=== PATIENT | female | born 1985 | race American Indian/Alaskan Native ===

== ENCOUNTER 2023-08-24 18:36 | Day surgery (SDC) | payer MEDICAID ==
[2023-08-24] MEDS ORDERED: Aluminum Hydroxide/Magnesium Hydroxide/Simethicone Susp 30 ML Cup PO ONE (19:02)
[2023-08-24 19:39] LABS: BASOPHILS PERCENT AUTO 0.2 % (0.0-1.0); EOSINOPHILS ABSOLUTE AUTO 0.1 K/mm3 (0.0-0.4); EOSINOPHILS PERCENT AUTO 0.7 % (0.0-6.0); HEMOGLOBIN 16.1 gm/dl (12.0-16.0); IMMATURE GRAN ABSOLUTE AUTO 0.04 K/mm3 (0.00-0.05); IMMATURE GRAN PERCENT AUTO 0.4 % (0.0-0.4); LYMPHOCYTES ABSOLUTE AUTO 0.7 K/mm3 (1.0-4.8); LYMPHOCYTES PERCENT AUTO 6.9 % (24.0-44.0); MEAN CORPUSCULAR HEMOGLOBIN 29.2 pg (28.0-32.0); MEAN CORPUSCULAR HGB CONC 33.5 g/dl (32.0-36.0); MEAN PLATELET VOLUME 9.1 fl (9.4-12.3); MONOCYTES ABSOLUTE AUTO 0.5 K/mm3 (0.0-0.8); MONOCYTES PERCENT AUTO 4.8 % (0.0-8.0); NEUTROPHILS ABSOLUTE AUTO 8.2 K/mm3 (1.8-7.7); PLATELET COUNT,PLT 310 K/mm3 (150-400); RED BLOOD CELL COUNT 5.52 M/mm3 (4.10-5.30); WHITE BLOOD CELL COUNT,WBC 9.44 K/mm3 (3.9-11.3)
[2023-08-24 19:48] LABS: APPEARANCE,URINE SLT CLOUDY (Clear); BILIRUBIN,URINE NEGATIVE (Negative); COLOR,URINE DARK YELLOW (Yellow); GLUCOSE,URINE NEGATIVE (Negative); KETONES,URINE 4+ (Negative); LEUKOCYTE ESTERASE,URINE TRACE (Negative); NITRITE,URINE NEGATIVE (Negative); OCCULT BLOOD,URINE NEGATIVE (Negative); PH,URINE 5.5 (5.0-8.0); PROTEIN,URINE TRACE (Negative); UROBILINOGEN,URINE 0.2 (0.2-1.0)
[2023-08-24 19:55] LABS: RBC,URINE 0-5 /hpf (0-5)
[2023-08-24 19:56] LABS: BACTERIA,URINE MODERATE /hpf (FEW); MUCUS,URINE MANY /hpf (FEW)
[2023-08-24 20:00] LABS: A/G RATIO 0.9 (1-2); ALBUMIN 3.9 g/dl (3.4-5.0); ANION GAP 15.6 (5-15); BILIRUBIN TOTAL 0.6 mg/dL (0.2-1.0); BUN/CREATININE RATIO 12.5 (14-18); C-REACTIVE PROTEIN 2.8 mg/dL (<1.0); CREATININE 0.8 mg/dL (0.55-1.02); EST CRCL DRUG DOSING (CG) 80.42 mL/min; POTASSIUM,K 3.6 mEq/L (3.5-5.1); PROTEIN TOTAL,TP 8.2 g/dl (6.4-8.2)
[2023-08-24] MEDS ORDERED: Iopamidol 612 MG/ML 100 ML Bottle IVPUSH ONE (20:21)
[2023-08-24] MEDS ORDERED: Sodium Chloride 0.9% 10 ML Syringe FLUSH ONE (20:21)
[2023-08-24] MEDS ORDERED: Sodium Chloride 0.9% 1,000 ML IV SCH (20:30)
[2023-08-24] MEDS ORDERED: Ondansetron 4 MG/2 ML SDV IVPUSH ONE (20:38)
[2023-08-24] MEDS ORDERED: diphenhydrAMINE 50 MG/ML SDV IVPUSH ONE (20:50)
[2023-08-24] MEDS ORDERED: ceFAZolin 2 GM in Sodium Chloride 0.9% 50 ML IV ONE (21:14)
[2023-08-24] MEDS ORDERED: metroNIDAZOLE/Normal Saline 500 MG in Premix Bag 1 BAG IV ONE (21:15)
[2023-08-24] MEDS ORDERED: Lactated Ringers 1,000 ML ONE (22:20)
[2023-08-24] MEDS ORDERED: EPINEPHrine 1 MG/ML SDV ONE (22:21)
[2023-08-24] MEDS ORDERED: Bupivacaine 0.5% 30 ML SDV ONE (22:21)
[2023-08-24] MEDS ORDERED: ceFAZolin 1 GM Vial ONE (22:21)
[2023-08-24] MEDS ORDERED: HYDROmorphone 0.5 MG/0.5 ML Syringe IVPUSH PRN ×2 (22:28→23:52)
[2023-08-24] MEDS ORDERED: Ondansetron 4 MG/2 ML SDV IVPUSH PRN ×2 (22:28→23:52)
[2023-08-24] MEDS ORDERED: fentaNYL 100 MCG/2 ML SDV IVPUSH PRN (22:28)
[2023-08-24] MEDS ORDERED: Ondansetron 4 MG/2 ML SDV ONE (22:34)
[2023-08-24] MEDS ORDERED: Midazolam 1 MG/ML 2 ML SDV ONE (22:34)
[2023-08-24] MEDS ORDERED: Rocuronium 50 MG/5 ML Vial ONE (22:34)
[2023-08-24] MEDS ORDERED: Propofol 200 MG/20 ML SDV ONE (22:34)
[2023-08-24] MEDS ORDERED: fentaNYL 250 MCG/5 ML SDV ONE (22:34)
[2023-08-24] MEDS ORDERED: Lidocaine 1% 5 ML VIAL ONE (22:34)
[2023-08-24] MEDS ORDERED: Dexamethasone 4 MG/ML 5 ML MDV ONE (23:09)
[2023-08-24] MEDS ORDERED: Ketorolac 30 MG/ML SDV ONE (23:26)
[2023-08-24] MEDS ORDERED: Sugammadex Sodium 200 MG/2 ML VIAL ONE (23:32)
[2023-08-24] MEDS ORDERED: Lactated Ringers 1,000 ML IV SCH (23:45)
[2023-08-25] MEDS ORDERED: Lactated Ringers 300 ML IV ONE (02:24)
[2023-08-25] MEDS: Lactated Ringers 1,000 ML IV SCH ×2 (03:15→05:46)
[2023-08-25 07:24] LABS: BASOPHILS PERCENT AUTO 0.2 % (0.0-1.0); HEMATOCRIT 44.4 % (37.0-47.0); HEMOGLOBIN 14.1 gm/dl (12.0-16.0); IMMATURE GRAN ABSOLUTE AUTO 0.02 K/mm3 (0.00-0.05); IMMATURE GRAN PERCENT AUTO 0.3 % (0.0-0.4); LYMPHOCYTES ABSOLUTE AUTO 0.4 K/mm3 (1.0-4.8); LYMPHOCYTES PERCENT AUTO 7.1 % (24.0-44.0); MEAN CORPUSCULAR HEMOGLOBIN 28.7 pg (28.0-32.0); MEAN CORPUSCULAR HGB CONC 31.8 g/dl (32.0-36.0); MEAN CORPUSCULAR VOLUME 90.2 fl (83.0-99.0); MEAN PLATELET VOLUME 9.2 fl (9.4-12.3); MONOCYTES ABSOLUTE AUTO 0.1 K/mm3 (0.0-0.8); NEUTROPHILS ABSOLUTE AUTO 5.6 K/mm3 (1.8-7.7); NEUTROPHILS PERCENT AUTO 91.4 % (41.0-71.0); PLATELET COUNT,PLT 283 K/mm3 (150-400); RED BLOOD CELL COUNT 4.92 M/mm3 (4.10-5.30); WHITE BLOOD CELL COUNT,WBC 6.16 K/mm3 (3.9-11.3)
[2023-08-25 08:28] LABS: SLIDE REVIEW ABNORMAL SMEAR
[2023-08-25] MEDS ORDERED: Famotidine 20 MG/2 ML SDV IV SCH (09:00)
[2023-08-26] MEDS ORDERED: Ketorolac 30 MG/ML SDV IVPUSH PRN (06:00)
== END 2023-08-25 14:13 | disposition home or self-care (01) ==
LOC: JD.ED 18:36 → JD.SDS 21:55 → JD.MS 08-25 01:12 → JD.SDS 08-25 15:37
PROVIDERS: ATTEND Specialist
DX: K35.33 Acute appendicitis with perforation, localized peritonitis, and gangrene, with abscess (principal); Z90.49 Acquired absence of other specified parts of digestive tract; Z88.8 Allergy status to other drugs, medicaments and biological substances
CPT/HCPCS: 36415; 44970; 74177; 80053; 81001; 83690; 84703; 85025; 86140; 87086; 96365; 96367; 96375; 99285; A9270; C1713; J0171; J0690; J1100; J1200; J1836; J1885; J2250; J2405; J2704; J3010; J3490; J7030; J7120; Q9967; 00840; 99140

== ENCOUNTER 2024-01-17 08:11 | Emergency (ER) | payer MEDICAID, OTHER ==
[2024-01-17] MEDS: Ondansetron 4 MG/2 ML SDV IVPUSH ONE (08:48)
[2024-01-17] MEDS: Famotidine 20 MG/2 ML SDV IVPUSH ONE (08:50)
[2024-01-17 08:51] LABS: APPEARANCE,URINE CLEAR (Clear); BILIRUBIN,URINE NEGATIVE (Negative); COLOR,URINE YELLOW (Yellow); GLUCOSE,URINE NEGATIVE (Negative); KETONES,URINE NEGATIVE (Negative); LEUKOCYTE ESTERASE,URINE NEGATIVE (Negative); NITRITE,URINE NEGATIVE (Negative); OCCULT BLOOD,URINE NEGATIVE (Negative); PH,URINE 8.5 (5.0-8.0); PROTEIN,URINE 1+ (Negative)
[2024-01-17] MEDS: Sodium Chloride 0.9% 10 ML Syringe FLUSH PRN (08:52)
[2024-01-17] MEDS: Sodium Chloride 0.9% 1,000 ML IV STA (08:55)
[2024-01-17 08:58] LABS: BASOPHILS PERCENT AUTO 0.3 % (0.0-1.0); EOSINOPHILS ABSOLUTE AUTO 0.1 K/mm3 (0.0-0.4); EOSINOPHILS PERCENT AUTO 0.7 % (0.0-6.0); HEMATOCRIT 48.2 % (37.0-47.0); IMMATURE GRAN ABSOLUTE AUTO 0.03 K/mm3 (0.00-0.05); IMMATURE GRAN PERCENT AUTO 0.3 % (0.0-0.4); LYMPHOCYTES ABSOLUTE AUTO 0.8 K/mm3 (1.0-4.8); LYMPHOCYTES PERCENT AUTO 8.2 % (24.0-44.0); MEAN CORPUSCULAR HEMOGLOBIN 28.8 pg (28.0-32.0); MEAN CORPUSCULAR HGB CONC 33.2 g/dl (32.0-36.0); MEAN CORPUSCULAR VOLUME 86.7 fl (83.0-99.0); MEAN PLATELET VOLUME 8.9 fl (9.4-12.3); MONOCYTES ABSOLUTE AUTO 0.5 K/mm3 (0.0-0.8); NEUTROPHILS ABSOLUTE AUTO 8.7 K/mm3 (1.8-7.7); NEUTROPHILS PERCENT AUTO 85.5 % (41.0-71.0); PLATELET COUNT,PLT 307 K/mm3 (150-400); RED BLOOD CELL COUNT 5.56 M/mm3 (4.10-5.30)
[2024-01-17] MEDS: Alum Hydrox/Mag Hydrox/Simeth 30 ML, Lidocaine 2% 15 ML PO ONE (09:18)
[2024-01-17 09:24] LABS: ALBUMIN 4.1 g/dl (3.4-5.0); ANION GAP 12.4 (5-15); BUN/CREATININE RATIO 28.3 (14-18); C-REACTIVE PROTEIN 0.42 mg/dL (<0.30); CALCIUM 9.1 mg/dL (8.5-10.1); CREATININE 0.6 mg/dL (0.55-1.02); EST CRCL DRUG DOSING (CG) 92.21 mL/min; POTASSIUM,K 4.4 mEq/L (3.5-5.1); PROTEIN TOTAL,TP 8.4 g/dl (6.4-8.2)
[2024-01-17 10:03] LABS: BACTERIA,URINE FEW /hpf (FEW); MUCUS,URINE FEW /hpf (FEW); RBC,URINE 0-5 /hpf (0-5); WBC,URINE 0-5 /hpf (0-5)
[2024-01-17] MEDS: Meclizine 25 MG Tab PO ONE (10:26)
== END 2024-01-17 10:55 | disposition home or self-care (01) ==
LOC: JD.ED 08:11
DX: K52.9 Noninfective gastroenteritis and colitis, unspecified (principal); Z91.041 Radiographic dye allergy status; Z79.899 Other long term (current) drug therapy; Z86.16 Personal history of COVID-19; Z90.49 Acquired absence of other specified parts of digestive tract
CPT/HCPCS: 36415; 80053; 81001; 83690; 84703; 85025; 86140; 96361; 96374; 96375; 99284; A9270; J2405; J3490; J7030